=== PATIENT | female | born 1940 | race Caucasian/White ===

== ENCOUNTER → 2016-05-28 | Outpatient (CLI) | payer OTHER ==
[~2016-05-28] MED LIST: AMLO-114 PO; EPLE50TA3 PO; HYG/25 PO; LABE100T23 PO; LEVO150T PO; ROSU5TAB PO
[2016-05-28 18:04] LABS: BLOOD UREA NITROGEN 19 mg/dl (7-18); BUN/CREATININE RATIO 20.3 (10-20); CALCIUM 9.2 mg/dl (8.5-10.1); CARBON DIOXIDE 30 mmol/L (21-32); CHLORIDE 101 mmol/L (98-107); CREATININE 0.92 mg/dl (0.60-1.20); GLUCOSE 153 mg/dl (70-99); POTASSIUM 3.4 mmol/L (3.5-5.1); SODIUM 140 mmol/L (136-145); URIC ACID 5.7 mg/dl (2.6-7.2)
[2016-05-28 18:07] LABS: CHOLESTEROL 173 mg/dl (0-200); CHOLESTEROL/HDL RATIO 3.8; HDL CHOLESTEROL 46 mg/dl; LDL CHOLESTEROL CALCULATED 95 mg/dl; TRIGLYCERIDES 159 mg/dl (0-150); VERY LOW DENSITY LIPOPROT CALC 32 mg/dl
[2016-05-29 06:39] LABS: ESTIMATED AVERAGE GLUCOSE 143 mg/dl; HA1C FLAG Normal (Normal)
== END | disposition home or self-care (01) ==
LOC: C.LABPVFM 14:06
PROVIDERS: ATTEND Family Medicine
DX: R73.09 Other abnormal glucose (principal); E78.5 Hyperlipidemia, unspecified; I10 Essential (primary) hypertension; M25.569 Pain in unspecified knee

== ENCOUNTER → 2016-08-08 | Outpatient (CLI) | payer OTHER ==
[2016-08-08 12:42] LABS: BLOOD UREA NITROGEN 16 mg/dl (7-18); BUN/CREATININE RATIO 18.2 (10-20); CARBON DIOXIDE 32 mmol/L (21-32); CHLORIDE 105 mmol/L (98-107); CREATININE 0.89 mg/dl (0.60-1.20); GLUCOSE 165 mg/dl (70-99); POTASSIUM 3.5 mmol/L (3.5-5.1); SODIUM 142 mmol/L (136-145)
[2016-08-08 12:59] LABS: ESTIMATED AVERAGE GLUCOSE 157 mg/dl; HA1C FLAG Normal (Normal)
== END | disposition home or self-care (01) ==
LOC: C.LABPVFM 09:39
PROVIDERS: ATTEND Family Medicine
DX: I10 Essential (primary) hypertension (principal); R73.09 Other abnormal glucose

== ENCOUNTER → 2016-11-07 | Outpatient (CLI) | payer OTHER ==
[2016-11-08 06:32] LABS: ESTIMATED AVERAGE GLUCOSE 143 mg/dl; HA1C FLAG Normal (Normal)
--- NOTE | 2016-11-13 10:26 | CODING QUERY MEDICAL NECESSITY ---
CQSUPPORTING DIAGNOSIS NEEDED A supporting diagnosis is required for the test/procedure performed on this patient in order for us to be reimbursed by the patient's insurance. Please provide a supporting diagnosis for the following test/procedure listed below next to the test name along with your signature. *If there is no additional diagnosis for this patient that would support the following test/procedure please document that below next to the test/procedure. Test(s)/Procedure(s) that require a supporting diagnosis: KIANNA 11/07/16 VITAMIN D TEST Provider Signature: Date: Thank you Shira Rey Health Information Management Once completed, please kindly fax back to [phone] For questions please call [phone]
== END | disposition home or self-care (01) ==
LOC: C.LABBFT 11:48
PROVIDERS: ATTEND Nurse Practitioner Adult Health
DX: E03.9 Hypothyroidism, unspecified (principal); Z85.828 Personal history of other malignant neoplasm of skin; E11.9 Type 2 diabetes mellitus without complications; E55.9 Vitamin D deficiency, unspecified

== ENCOUNTER → 2017-01-03 | Outpatient (CLI) | payer OTHER ==
--- NOTE | 2017-01-08 12:38 | MAMMOGRAPHY REPORT ---
BILATERAL DIGITAL SCREENING MAMMOGRAM TOMOSYNTHESIS WITH CAD: 01/03/2017 CLINICAL HISTORY: Asymptomatic. Personal history of breast cancer. TECHNIQUE: Breast tomosynthesis in addition to standard 2D mammography was performed. Current study was also evaluated with a Computer Aided Detection (CAD) system. COMPARISON: Comparison is made to exams dated: 01/03/2016 mammogram, 11/04/2014 mammogram, 11/02/2013 ma mmogram, 10/31/2012 mammogram, 04/22/2012 mammogram, and 11/05/2011 mammogram - [facility] nter. BREAST COMPOSITION: There are scattered areas of fibroglandular density in both breasts. FINDINGS: No suspicious masses, calcifications, or areas of architectural distortion are noted in ei ther breast. There has been no significant interval change compared to prior exams. There are stable postsurgical changes in the right upper outer quadrant and left subareolar breast. Bilateral asymme tries and benign-appearing calcifications are not significantly changed. IMPRESSION: ACR BI-RADS CATEGORY 2: BENIGN There is no mammographic evidence of malignancy. A 1 year screening mammogram is recommended. The pa tient will receive written notification of the results. Approximately 10% of breast cancers are not detected with mammography. A negative mammographic report should not delay biopsy if a clinically suggestive mass is present. Racheal Graham M.D. ah/:01/04/2017 16:30:56 Printing Worker Supervisor: Lizette CANCINO)(Michelle), [facility] letter sent: Normal 1/2 BI-RADS Code: ACR BI-RADS Category 2: Benign
== END | disposition home or self-care (01) ==
LOC: C.MAMM 09:05
PROVIDERS: ATTEND Family Medicine
DX: Z12.31 Encounter for screening mammogram for malignant neoplasm of breast (principal)

== ENCOUNTER → 2017-01-08 | Outpatient (CLI) | payer OTHER ==
[2017-01-08 18:23] LABS: BLOOD UREA NITROGEN 14 mg/dl (7-18); BUN/CREATININE RATIO 17.6 (10-20); CALCIUM 9.2 mg/dl (8.5-10.1); CARBON DIOXIDE 29 mmol/L (21-32); CHLORIDE 104 mmol/L (98-107); CREATININE 0.79 mg/dl (0.60-1.20); GLUCOSE 104 mg/dl (70-99); POTASSIUM 3.7 mmol/L (3.5-5.1); SODIUM 140 mmol/L (136-145)
== END | disposition home or self-care (01) ==
LOC: C.LABPVFM 11:26
PROVIDERS: ATTEND Family Medicine
DX: I10 Essential (primary) hypertension (principal)

== ENCOUNTER → 2017-07-11 | Outpatient (CLI) | payer OTHER ==
[2017-07-11 13:55] LABS: HEMOGLOBIN A1C 5.9 % (4.5-5.6)
[2017-07-11 14:13] LABS: ALBUMIN 3.6 gm/dl (3.4-5.0); ALT/SGPT 21 U/L (12-78); BLOOD UREA NITROGEN 16 mg/dl (7-18); CALCIUM 8.7 mg/dl (8.5-10.1); CARBON DIOXIDE 29 mmol/L (21-32); CHOLESTEROL 153 mg/dl (0-200); GLUCOSE 91 mg/dl (70-99); POTASSIUM 3.5 mmol/L (3.5-5.1); SODIUM 140 mmol/L (136-145)
[2017-07-11 14:24] LABS: ALKALINE PHOSPHATASE 66 U/L (45-117); AST/SGOT 16 U/L (15-37); LDL CHOLESTEROL CALCULATED 81 mg/dl; TOTAL PROTEIN 7.2 gm/dl (6.4-8.2)
== END | disposition home or self-care (01) ==
LOC: C.LABBFT 07:39
PROVIDERS: ATTEND Nurse Practitioner Adult Health
DX: E03.9 Hypothyroidism, unspecified (principal); E11.9 Type 2 diabetes mellitus without complications; E55.9 Vitamin D deficiency, unspecified; E78.5 Hyperlipidemia, unspecified; I10 Essential (primary) hypertension

== ENCOUNTER 2019-02-14 13:29 | Inpatient (IN) ==
--- NOTE | 2019-02-14 14:12 | Emergency Department Note ---
Entered by Emili Abbott acting as a scribe for Leonardo Morrison MD History of Present Illness General Chief complaint: Syncope Stated complaint: PASSED OUT - WAS UNRESPONSIVE Time Seen by Provider: 02/14/19 13:42 Source: patient Limitations: no limitations History of Present Illness Onset (ago): hour(s) 3 Location: head Severity: similar to prior episodes Pain Consistency: + other (episode) Current Pain Intensity: 0 Quality: + other (syncope) Associated symptoms: + denies other symptoms (The patient denies any pain, SOB, dizziness, CP, chest palpitations, lightheadedness, and weakness.) The patient is a 78 year old female who presents to the Emergency Room with complaints of a 1-minute syncopal episode that occurred at 10:30 this morning, about 3 hours ago. Her family member, at bedside, notes that she's had 2 similar episodes in the past year. The patient's family member notes that the episode o ccurred while she was sitting at the table. He states that they were talking at the table during breakfast, and she rubbed the sides of her head, became unresponsive, and was "just staring out the window." The patient's family member notes that she started "slumping over," and he caught her before she fell onto the floor. He states that she yawned after the episode, but he denies any shaking during the episode. The family member reports that she woke immediately after the episode with no postictal confusion. The patient denies any pain, SOB, dizziness, CP, diaphoresis, chest palpitations, lightheadedness, and weakness. She denies any memory of the syncopal episode. The patient reports that she felt normal before the episode and she feels normal now. Home Medications Home Medications Medication Instructions Recorded Confirmed Type aspirin [Aspirin Low Dose] 81 mg PO QAM 02/25/18 02/14/19 History levothyroxine 150 mcg tablet 150 mcg PO QAM #90 tab 11/14/18 02/14/19 Rx eplerenone 25 mg tablet 25 mg PO QAM #90 tab 12/11/18 02/14/19 Rx labetalol 100 mg tablet 200 mg PO BID #360 tab 12/29/18 02/14/19 Rx ascorbic acid (vitamin C) 1,000 mg 1 g PO DAILY@1200 tab 01/19/19 02/14/19 History tablet blood sugar diagnostic strips #10 ea 01/19/19 02/14/19 History cholecalciferol (vitamin D3) 2,000 2,000 units PO DAILY@1200 cap 01/19/19 02/14/19 History unit capsule lancets 33 gauge #100 ea 01/19/19 02/14/19 History amlodipine 10 mg PO QAM 02/14/19 02/14/19 History atorvastatin 20 mg PO QAM 02/14/19 02/14/19 History ibuprofen 200 mg PO Q6H PRN 02/14/19 02/14/19 History lisinopril-hydrochlorothiazide 1 tab PO QAM 02/14/19 02/14/19 History metformin 500 mg PO BIDM 02/14/19 02/14/19 History Allergies Allergy/AdvReac Type Severity Reaction Status Date / Time No Known Allergies Allergy Unknown NONE Verified 02/14/19 14:47 Past Med/Surg History Medical History Anemia (Chronic) Breast cancer (Resolved) s/p right lumpectomy and XRT for DCIS in 1996, s/p left lumpectomy for invasive carcinoma 2006, s/p right mastectomy for invasive carcinoma 2018 Lyme disease (Resolved) Type 2 diabetes mellitus (Chronic) Hypertension (Chronic) Hx of skin cancer, basal cell (Resolved) NOSE Hypothyroidism (Chronic) Actinic keratosis (Chronic) Colon polyps (Resolved) Hyperlipidemia (Chronic) Malignant melanoma of skin (Resolved) Vitamin D deficiency (Chronic) Surgical History H/O partial thyroidectomy for goiter H/O total mastectomy of right breast History of cataract surgery WITH LENS IMPLANTS History of colonoscopy Hx of lumpectomy right and left Family History Mother Myocardial infarction Social History Preferred Language: American Communication Ability: Effective Visual Impairment: No Limitations Beliefs That Will Affect Care: None Current Living Situation: Spouse Feels Safe at Home: Yes Smoking Status: Never smoker Hx Alcohol Use: No Hx Substance Use: No Review of Systems See HPI for pertinent positives & negatives. and A total of 10 systems reviewed and were otherwise negative Physical Exam Vital Signs Vital Signs - 24 hr 02/14/19 13:37 02/14/19 14:19 02/14/19 15:10 Temperature 36.5 C Temperature Source Oral Sepsis Recent Fever Within 48 Hours No Sepsis New/Unexplained Change in Mental Status No Sepsis Action Taken by Nursing No Action Required Pulse Rate 66 Pulse Rate [Apical] 67 Pulse Rhythm Regular Pulse Rhythm [Apical] Regular Pulse Strength Normal Pulse Strength [Apical] Normal Respiratory Rate 20 20 Respiratory Effort / Characteristics Non-Labored Spontaneous Non-Labored Spontaneous Respiratory Depth Normal Normal Respiratory Pattern Regular Regular Blood Pressure 200/65 H Blood Pressure [Left Arm] 173/58 H 164/69 H Blood Pressure Mean 110 Blood Pressure Mean [Left Arm] 96 100 Blood Pressure Position Sitting Blood Pressure Position [Left Arm] Sitting Pulse Oximetry 97 97 Oxygen Delivery Method Room Air Room Air 02/14/19 16:13 Temperature Temperature Source Sepsis Recent Fever Within 48 Hours Sepsis New/Unexplained Change in Mental Status Sepsis Action Taken by Nursing Pulse Rate Pulse Rate [Apical] 78 Pulse Rhythm Pulse Rhythm [Apical] Regular Pulse Strength Pulse Strength [Apical] Normal Respiratory Rate 20 Respiratory Effort / Characteristics Non-Labored Spontaneous Respiratory Depth Normal Respiratory Pattern Regular Blood Pressure Blood Pressure [Left Arm] 173/74 H Blood Pressure Mean Blood Pressure Mean [Left Arm] 107 Blood Pressure Position Blood Pressure Position [Left Arm] Sitting Pulse Oximetry 97 Oxygen Delivery Method Room Air GENERAL: Patient is in no acute distress. HEENT: No acute trauma, normocephalic atraumatic, mucous membranes moist, no nasal congestion, no scleral icterus. NECK: No stridor, no adenopathy, no meningismus, trachea is midline. LUNGS: Clear to auscultation bilaterally, no wheeze, no rhonchi, breath sounds equal. HEART: 2/6 systolic murmur at the left sternal boarder. The rhythm is somewhat irregular with a normal rate. ABDOMEN: Soft, nontender, bowel sounds positive, no hernias, no peritonitis. EXTREMITIES: No cyanosis or edema, full range of motion of all the joints without pain or difficulty, no signs for acute trauma. NEUROLOGIC: Oriented x 3, no acute motor or sensory deficits, no focal weakness. SKIN: No rash, no jaundice, no diaphoresis. Course 1343: The patient was evaluated in room C04. A complete history and physical exam was performed. 1516: I reevaluated and updated the patient. 1526: I spoke with Dr. Barakat, [facility], about the patients case. He wants the patient admitted. 1546: I updated the patient, and she is willing to be evaluated by the hospitalist. 1608: I spoke with Dr. Duke, [facility] hospitalist, about the patients case. She will further evaluate the patient. Consultations Consultation #1: I spoke with [facility], about the patients case. He wants the patient admitted. Time: 15:26 Consultation #2: I spoke with Dr. Duke, [facility] hospitalist, about the patients case. She will further evaluate the patient. Time: 16:08 Medical Decision Making Differential Diagnosis The differential diagnosis includes: dysrhythmia, A-fib or A-flutter, sick sinus syndrome, TN, orthostasis, hypotension, anemia. Medical Records Attestation: I reviewed the patient's medical records. Home Medications Current Medication List: was personally reviewed by me Laboratory Data Attestation: I reviewed the patient's lab results. Result diagrams: 02/14/19 13:56 02/14/19 13:56 Lab Results 02/14/19 02/14/19 02/14/19 Range/Units 13:56 13:56 14:15 WBC 7.95 (4.8-10.8) K/uL RBC 4.82 (4.2-5.4) M/uL Hgb 12.0 (12.0-16.0) g/dL Hct 38.3 (37-47) % MCV 79.5 L (80-100) fL MCH 24.9 L (25-34) pg MCHC 31.3 L (32-36) g/dL RDW Std Deviation 45.6 (36.4-46.3) fL RDW Coeff of Angelica 15.6 H (11.5-14.5) % Plt Count 238 (130-400) K/uL MPV 10.5 H (7.4-10.4) fL Immature Gran % (Auto) 0.3 % Neut % (Auto) 77.0 % Lymph % (Auto) 15.1 % [place] % (Auto) 6.7 % Eos % (Auto) 0.6 % Baso % (Auto) 0.3 % Immature Gran # (Auto) 0.02 (0.00-0.02) K/uL Neut # (Auto) 6.13 (1.4-6.5) K/uL Lymph # (Auto) 1.20 (1.2-3.4) K/uL Thurston # (Auto) 0.53 (0.11-0.59) K/uL Eos # (Auto) 0.05 (0-0.5) K/uL Baso # (Auto) 0.02 (0-0.2) K/uL Sodium 140 (136-145) mmol/L Potassium 4.1 (3.5-5.1) mmol/L Chloride 109 H (98-107) mmol/L Carbon Dioxide 24 (21-32) mmol/L Anion Gap 7.0 (3-11) BUN 13 (7-18) mg/dl Creatinine 0.84 (0.6-1.2) mg/dl Est Cr Clr Drug Dosing 65.8 ml/min Est GFR ( Amer) 78.2 Est GFR (Non-Af Amer) 67.5 BUN/Creatinine Ratio 15.8 (10-20) Glucose 108 H (70-99) mg/dl Calcium 8.7 (8.5-10.1) mg/dl Magnesium 2.0 (1.8-2.4) mg/dl Total Bilirubin 0.5 (0.2-1) mg/dl AST 13 L (15-37) U/L ALT 20 (12-78) U/L Alkaline Phosphatase 84 (45-117) U/L Troponin I < 0.015 (0-0.045) ng/ml Total Protein 7.5 (6.4-8.2) gm/dl Albumin 3.7 (3.4-5.0) gm/dl Globulin 3.8 (2.5-4.0) gm/dl Albumin/Globulin Ratio 1.0 (0.9-2) TSH 4.150 (0.300-4.500) uIu/ml Urine Color Yellow Urine Appearance Clear (Clear) Urine pH 7.0 (4.5-7.5) Ur Specific [place] 1.015 (1.000-1.030) Urine Protein Negative (Negative) Urine Glucose (UA) Negative (Negative) Urine Ketones Negative (Negative) Urine Blood Negative (Negative) Urine Nitrite Negative (Negative) Urine Bilirubin Negative (Negative) Urine Urobilinogen Negative (Negative) Ur Leukocyte Esterase Negative (Negative) Imaging Data Radiologist's Impression: Radiology results as stated below per my review and the radiologist's interpretation: XR chest 1V portable HISTORY: 78 years-old Female weakness acute weakness with syncope COMPARISON: PET CT 04/07/2018, chest radiograph 02/26/2018 TECHNIQUE: Portable AP view of the chest FINDINGS: Cardiac silhouette is enlarged, unchanged. Calcified plaque of the thoracic aortic arch. Moderate sized hiatal hernia. No pneumothorax, pleural effusion, focal airspace consolidation or overt pulmonary edema. Calcified plaque of the thoracic aortic arch. Degenerative changes of the shoulders and spine. IMPRESSION: 1. Cardiomegaly without acute process. 2. Moderate hiatal hernia. The above report was generated using voice recognition software. It may contain grammatical, syntax or spelling errors. Electronically signed by: William Mojica M.D. 02/14/2019 2:09 PM ECG Data Attestation: I personally reviewed and interpreted this ECG as follows: Indication: syncope Rate (beats per minute): 61 Rhythm: normal sinus Findings: + other (QTC is 426); no ST elevation and no ectopy Comparison ECG Date: from (02/26/18) Change: no significant change Blood Pressure Blood Pressure Findings: Elevated blood pressure Blood Pressure Disposition: further management by hospitalist MDM Narrative There is no leukocytosis or concerning anemia. No significant electrolyte abnormality or kidney failure. No liver enzyme elevation. The patient appeared to be in a euthyroid state. EKG showed a sinus rhythm, no acute ischemia. Cardiac enzyme testing x1 is not consistent with acute cardiac injury. Chest film does not show pneumonia or CHF. Urinalysis does not show infection. The patient presents with a syncopal spell. There was no warning that she was going to pass out. This has happened 3 times in the last year. I discussed the patient's case with cardiology. A hospital stay was felt warranted. I did speak with the patient and case management. The on-call hospitalist was consulted. At this point, the cause for the syncope is unclear however, a cardiogenic cause is certainly a concern. Impression & Plan Syncope Discharge Plan Visit Data *Final* Discharge Date/Time: 02/14/19 18:30 Chief Complaint: Syncope Stated Complaint: PASSED OUT - WAS UNRESPONSIVE ED Provider: Leonardo Morrison Discharge Problem: Syncope Patient Disposition: Admitted As Inpatient Discharge Instructions Interventions: ED Discharge Assessment Last Done: 02/14/19 18:30 Discharge Problem: Syncope Qualifiers: Syncope type: unspecified Qualified Code(s): R55 - Syncope and collapse The scribe's documentation has been prepared under my direction and personally reviewed by me in its entirety. I confirm that the note above accurately reflects all work, treatment, procedures, and medical decision making performed by me.
[2019-02-14 14:33] LABS: Basophils # (auto) 0.02 K/uL (0-0.2); Basophils % (auto) 0.3 %; Eosinophils # (auto) 0.05 K/uL (0-0.5); Eosinophils % (auto) 0.6 %; Hematocrit (blood only) 38.3 % (37-47); Immature Granulocytes # (auto) 0.02 K/uL (0.00-0.02); Immature Granulocytes % (auto) 0.3 %; Lymphocytes % (auto) 15.1 %; Mean Corpuscular Hemoglobin 24.9 pg (25-34); Mean Corpuscular Hgb Conc 31.3 g/dL (32-36); Mean Corpuscular Volume 79.5 fL (80-100); Mean Platelet Volume 10.5 fL (7.4-10.4); Monocytes # (auto) 0.53 K/uL (0.11-0.59); Monocytes % (auto) 6.7 %; Neutrophils # (auto) 6.13 K/uL (1.4-6.5); Platelet Count 238 K/uL (130-400); RDW Coefficient of Variation 15.6 % (11.5-14.5); RDW Standard Deviation 45.6 fL (36.4-46.3); Red Blood Count 4.82 M/uL (4.2-5.4); White Blood Count 7.95 K/uL (4.8-10.8)
[2019-02-14 14:36] LABS: Appearance Urine Clear (Clear); Bilirubin Urine Negative (Negative); Blood Urine Negative (Negative); Color Urine Yellow; Glucose Urine UA Negative (Negative); Ketones Urine Negative (Negative); Leukocyte Esterase Urine Negative (Negative); Nitrite Urine Negative (Negative); Protein Urine Negative (Negative); Specific Gravity Urine 1.015 (1.000-1.030); Urobilinogen Urine Negative (Negative)
[2019-02-14 14:43] LABS: Alanine Aminotransferase 20 U/L (12-78); Albumin Level 3.7 gm/dl (3.4-5.0); Aspartate Aminotransferase 13 U/L (15-37); BUN Creatinine Ratio 15.8 (10-20); Blood Urea Nitrogen 13 mg/dl (7-18); Calcium 8.7 mg/dl (8.5-10.1); Carbon Dioxide 24 mmol/L (21-32); Chloride 109 mmol/L (98-107); Creatinine Clr Calc Pharmacy 65.8 ml/min; Est GFR (African American) 78.2; Est GFR (Non-African American) 67.5; Glucose 108 mg/dl (70-99); Potassium 4.1 mmol/L (3.5-5.1); Sodium 140 mmol/L (136-145)
[2019-02-14 14:53] LABS: Alkaline Phosphatase 84 U/L (45-117); Bilirubin,Total 0.5 mg/dl (0.2-1); Globulin 3.8 gm/dl (2.5-4.0); Total Protein 7.5 gm/dl (6.4-8.2); Troponin I < 0.015 ng/ml (0-0.045)
--- NOTE | 2019-02-14 17:31 | History & Physical Report ---
Date of Service February 14, 2019 Assessment & Plan (1) Syncope: Uncertain etiology Possible arrhythmia, tele monitor ECHO pending Trop neg x1, serials pending Some features of episode c/w absence seizure although no post ictal state described Will obtain EEG Recent Lyme disease with at least one course of tx, but felt incomplete tx per derm--it is unclear if pt completed a second course of tx and all notes are not in system Lyme testing pending UA, CXR neg for infection CBC, PRP WNL TSH WNL If all testing WNL, t/c event monitor (2) Anemia: Hx of recent iron transfusion Iron panel pending Hb stable with low MCV Seems less likely the reason for syncope (3) Breast cancer: s/p mastectomy 03/2018 Did not complete course of PO chemo due to side effects and has not f/u since that time Agreeable to mammogram next month Did advise that pt be seen by new oncology given risk for recurrence She and family agree to do so (4) Lyme disease: As noted above Lyme pending WCC for rash/ulceration management (5) Type 2 diabetes mellitus: Metformin only Monitor BS WNL in ED (6) Hypertension: continue home meds (7) Hx of skin cancer, basal cell: Follows with derm (8) Hypothyroidism: continue home meds (9) Hyperlipidemia: continue home meds (10) HTN (hypertension): continue home meds (11) DVT prophylaxis: SCDs, aspirin given likely short duration of admission History of Present Illness Primary Care Provider: Jami Doan MD 78 y/o F c/o syncopal episode. Pt does not remember this at all. She states she felt fine today and yesterday. She had a normal day yesterday and was able to do all of the things she usually does without issue. She was sitting at the table with her and reading the paper. He states he was talking to her and she slowly put down the paper and was just staring ahead. He continued to try to call her name and talk with her but he states "it was like she couldn't hear me". She gradually started to slump forward and he got up to help her so she did not hit her head. She was unconscious for about 1 minute. When she woke up, he states pt was back to her prior self. No issues talking or interacting, but she had no memory of this event. states this is the third time this has happened in the last several months. Pt denies fever, SOB, chest pain, abd pain, n/v/c/d, LE pain or swelling. Pt states she feels fine at present. Pt has been following with derm for a rash on her abd for several months. 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 Per [employer], pt was initially seen for this on 09/25 and given doxy x30 days. She does think that she finished this course and states that her rash is much improved. She was seen again on 01/27 and it references a visit from 12/08, however this note is not in either system. It does suggest that she was put on doxy x2 months on 12/08, but pt states no further doxy use. She does think she was given another abx, but she does not remember the name. She thinks she took it for about 10 days. No further abx started on 01/27 per pt. Pt has hx of R sided breast cancer s/p mastectomy on 03/12/18. Pt tells me she is not on any tx for this. While looking for derm notes, I found another note from PCP stating that [facility] and was being tx with PO medications. She had intense joint pain with this and stopped this medication without f/u. I did return to pt room to discuss and they tell me that this did happen. She ended up with Qweekly iron transfusions while on this medication and with joint pain, so she wanted to stop it. Dr. Burns recommended against this, so she decided to just stop this medication and not return for further care. It appears that this was discussed at recent PCP visit last month with pt given referral to [facility] oncology, however she told PCP she did not want to f/u at this time with oncology, but that she would have a mammogram in February as scheduled. Pt does confirm that she has not scheduled a new pt visit with oncology but that she is planning her mammogram. Allergies Allergy/AdvReac Type Severity Reaction Status Date / Time No Known Allergies Allergy Unknown NONE Verified 02/14/19 14:47 Home Medications Home Medications Medication Instructions Recorded Confirmed Type aspirin [Aspirin Low Dose] 81 mg PO QAM 02/25/18 02/14/19 History levothyroxine 150 mcg tablet 150 mcg PO QAM #90 tab 11/14/18 02/14/19 Rx eplerenone 25 mg tablet 25 mg PO QAM #90 tab 12/11/18 02/14/19 Rx labetalol 100 mg tablet 200 mg PO BID #360 tab 12/29/18 02/14/19 Rx ascorbic acid (vitamin C) 1,000 mg 1 g PO DAILY@1200 tab 01/19/19 02/14/19 History tablet blood sugar diagnostic strips #10 ea 01/19/19 02/14/19 History cholecalciferol (vitamin D3) 2,000 2,000 units PO DAILY@1200 cap 01/19/19 02/14/19 History unit capsule lancets 33 gauge #100 ea 01/19/19 02/14/19 History amlodipine 10 mg PO QAM 02/14/19 02/14/19 History atorvastatin 20 mg PO QAM 02/14/19 02/14/19 History ibuprofen 200 mg PO Q6H PRN 02/14/19 02/14/19 History lisinopril-hydrochlorothiazide 1 tab PO QAM 02/14/19 02/14/19 History metformin 500 mg PO BIDM 02/14/19 02/14/19 History Past Med/Surg History Medical History Anemia (Chronic) Breast cancer (Resolved) s/p right lumpectomy and XRT for DCIS in 1996, s/p left lumpectomy for invasive carcinoma 2006, s/p right mastectomy for invasive carcinoma 2018 Lyme disease (Resolved) Type 2 diabetes mellitus (Chronic) Hypertension (Chronic) Hx of skin cancer, basal cell (Resolved) NOSE Hypothyroidism (Chronic) Actinic keratosis (Chronic) Colon polyps (Resolved) Hyperlipidemia (Chronic) Malignant melanoma of skin (Resolved) Vitamin D deficiency (Chronic) Surgical History H/O partial thyroidectomy for goiter H/O total mastectomy of right breast History of cataract surgery WITH LENS IMPLANTS History of colonoscopy Hx of lumpectomy right and left Family History Mother Myocardial infarction Social History Preferred Language: Persian Communication Ability: Effective Visual Impairment: No Limitations Beliefs That Will Affect Care: None Current Living Situation: Spouse Feels Safe at Home: Yes Smoking Status: Never smoker Hx Alcohol Use: No Hx Substance Use: No Review of Systems Review of Systems: Pertinent positives and negatives reviewed in HPI--all o thers negative Physical Exam Constitutional: WD/WN, vitals as above Eyes: normal visual ng by confrontation and + anicteric sclerae Neck: normal visual inspection and trachea midline Respiratory: normal respiratory effort, lungs clear to auscultation Cardiovascular: Rate/Rhythm: regular rate and regular rhythm Gastrointestinal (Abdomen): Inspection/Auscultation: abdomen not distended Percussion/Palpation: abdomen soft; abdomen nontender Musculoskeletal: Head/Neck/Chest: normocephalic and head atraumatic negative for edema, peripheral pulses intact Skin: warm and dry Abd with redness and scaling along b/l lateral larose that appears to be healing with bandages in place that are clean Several areas in the suprapubic region with chronic skin changes Neurologic: awake; not confused Speech / Cognition: normal speech Psychiatric: A+Ox3, euthymic affect Results & Data Vital Signs (Past 12 Hours) Vital Signs Temp Pulse Pulse Resp BP BP Pulse Ox 02/14/19 16:13 78 20 173/74 H 97 02/14/19 15:10 67 20 164/69 H 97 02/14/19 14:19 173/58 H 02/14/19 13:37 36.5 C 66 20 200/65 H 97 Diagnostic Findings CXR: mild hiatal hernia ECG Rhythm: normal sinus Code Status & VTE Plan Code Status Full cardiac code, DNI. Family is present and agrees with her wishes She does reinforce that she would like to be an organ donor VTE Prophylaxis Plan VTE Prophylaxis will be ordered: Yes PG Care Time/CCT Total # of Minutes Spent Total Time Spent with Patient: Total time spent is greater than 50% in coordination of care (as documented) at patient's floor/unit and/or counseling patient: (1) Syncope Syncope type: unspecified Qualified Code(s): R55 - Syncope and collapse
[2019-02-14] MEDS ORDERED: ONDANSETRON INJ 2 MG/ML 2 ML VIAL IV PRN (18:47)
[2019-02-14] MEDS ORDERED: MAGNESIUM HYDROXIDE SUSP 30 ML UDC PO PRN (18:47)
[2019-02-14] MEDS ORDERED: ACETAMINOPHEN 325 MG TAB PO PRN (18:47)
[2019-02-14] MEDS ORDERED: IBUPROFEN 200 MG TAB PO PRN (18:47)
[2019-02-14 20:59] LABS: Lyme Ab IgG w/WB Rflx Positive (Negative); Lyme Ab IgM w/WB Rflx Equivocal (Negative)
[2019-02-14] MEDS: LABETALOL HCL 200 MG TAB PO SCH (21:14)
[2019-02-14] MEDS: EPLERENONE: ORDER AWAITING ACTION SCH (23:36)
[2019-02-15] MEDS ORDERED: INFLUENZA ADMINISTRATION CHARGE ONE (00:15)
[2019-02-15] MEDS ORDERED: INFLUENZA VACCINE HIGH DOSE 65+ 0.5 ML SYR IM ONE (00:15)
[2019-02-15] MEDS: LEVOTHYROXINE SODIUM 150 MCG TABLET PO SCH (05:42)
[2019-02-15 06:48] LABS: Ferritin 5.8 ng/ml (8-388)
[2019-02-15] MEDS: LABETALOL HCL 200 MG TAB PO SCH ×2 (08:30→20:56)
[2019-02-15] MEDS: AMLODIPINE BESYLATE 5 MG TAB PO SCH (08:30)
[2019-02-15] MEDS: ASPIRIN 81 MG ECTAB PO SCH (08:30)
[2019-02-15] MEDS: LISINOPRIL/HCTZ 10/12.5MG TAB PO SCH (08:30)
[2019-02-15] MEDS: ATORVASTATIN 20 MG TAB PO SCH (08:30)
[2019-02-15] MEDS: METFORMIN HCL 500 MG TAB PO SCH ×2 (08:31→20:19)
[2019-02-15] MEDS: EPLERENONE: ORDER AWAITING ACTION SCH ×2 (08:31→17:21)
[2019-02-15] MEDS: ASCORBIC ACID 500 MG TAB PO SCH (12:37)
[2019-02-15] MEDS: CHOLECALCIFEROL 1,000 UNITS TAB PO SCH (12:38)
[2019-02-15] MEDS ORDERED: GADOBUTROL 30ML VIAL IV PRN (14:24)
--- NOTE | 2019-02-15 14:45 | Magnetic Resonance Report ---
MRI OF THE BRAIN WITHOUT AND WITH IV CONTRAST CLINICAL HISTORY: Syncope. Breast carcinoma. Possible stroke. Possible metastatic disease. COMPARISON STUDY: No previous studies for comparison. TECHNIQUE: MRI of the brain was performed from the vertex to the skull base utilizing various T1 and T2 weighted sequences. Following the IV administration of 8 mL of Gadavist contrast, additional enhan hernán images were obtained. FINDINGS: Other than the above-described extra-axial parafalcine enhancing mass, there are no additio nal areas of pathologic enhancement. Sagittal T1, axial diffusion, proton density and T2 weighted axial, coronal FLAIR, and pre and post a xial T1-weighted images were acquired. These were supplemented with post gadolinium coronal T1 weight ed images. There is a 12 x 12 x 6 mm intensely enhancing extra-axial left convexity parafalcine mass, likely rep resenting a meningioma. No additional masses are delineated. Axial diffusion-weighted images reveal no evidence of acute or subacute infarction. There is no evidence of ventricular dilatation. Proton density T2-weighted and FLAIR images reveal multiple foci of increased T2 and FLAIR signal wit hin the white matter, statistically on a small vessel basis. There are no abnormal flow voids. There is no evidence of pathologic enhancement. There are foci of mildly increased T2 signal within the right mastoid likely inflammatory IMPRESSION: 1. No evidence of acute or subacute infarction 2. 12 x 12 x 6 mm enhancing extra-axial left convexity parafalcine mass, likely representing a mening ioma. 3. No evidence of intraparenchymal metastasis 4. Nonspecific foci of increased T2 and FLAIR signal within the white matter, likely on a small vesse l basis. Electronically signed by: Ryan Hazel M.D. 02/15/2019 2:44 PM
--- NOTE | 2019-02-15 14:51 | XRay Report ---
XR abdomen min 2V CLINICAL HISTORY: abdominal distension COMPARISON STUDY: No previous studies for comparison. FINDINGS: No free air is visualized. There is a suspected hiatal hernia. There are pelvic calcificati ons, likely representing calcifications within the uterine fibroid. There is a 1 cm right abdominal c alcification, likely representing a renal or ureteral calculus. There are scattered air-fluid levels. There is moderate left colonic stool. There are distended left-sided small bowel loops measuring up to 5.3 cm. IMPRESSION: 1. Distended small bowel loops measuring up to 5.3 cm 2. Hiatal hernia 3. No free air identified 4. 1 cm right abdominal calcification likely representing a renal or ureteral calculus 5. Paucity of bowel gas within the right abdomen, likely secondary to the patient's known large right renal cyst Electronically signed by: Ryan Hazel M.D. 02/15/2019 2:49 PM
[2019-02-15] MEDS ORDERED: IOVERSOL 100ml IV PRN (19:35)
--- NOTE | 2019-02-15 19:59 | CT Scan Report ---
CT abd pelvis oral and IV con CLINICAL HISTORY: Weight loss, abdominal distention, abnormal a UV. COMPARISON STUDY: KUB dated 02/15/2019, PET CT scan performed April 2018 TECHNIQUE: The patient was scanned following administration of dilute oral contrast, and in a dynamic helical fashion during intravenous administration of 94 cc of Optiray 320. A dose lowering techniqu e was utilized adhering to the principles of ALARA. CT DOSE: 604.83 mGy.cm FINDINGS: Lower chest: There is a large hiatal hernia. There is no pericardial effusion. There is minor basilar atelectasis. Liver: The contrast-enhanced liver is normal in size, contour, and attenuation. There is no intrahepa tic biliary ductal dilatation. The hepatic veins and portal veins are patent. Gallbladder: Unremarkable. Spleen: Normal in size and attenuation. Pancreas: There are multiple pancreatic lesions involving the pancreatic head body and tail. The larg est lesion involves the tail and measures 28 mm. Pancreatic calcifications are also visualized. There is no definite pancreatic ductal dilatation. Adrenal glands: There is a 14 mm left adrenal gland which measures 30 Hounsfield units and is therefo re indeterminate. Kidneys: There is a 16.5 cm right renal cyst. There is a 22 mm left renal cyst. Additional smaller re nal cysts are visualized. No solid renal masses are visualized. There is no hydronephrosis. There is a probable left renal calculus. Bowel: There are no transition zones to indicate bowel obstruction. There is moderate stool throughou t the colon. CT scanning fails to confirm the presence of a dilated small bowel loop. The outlet in q uestion on the prior KUB may represent colon which is displaced due to the large right renal cyst. No acute inflammatory changes are visualized. Peritoneum: There is no intraperitoneal free air or abdominal ascites. Vasculature: The abdominal aorta is normal in course and caliber. Adenopathy: There is a stable prominent right inguinal lymph node measuring 22 mm Pelvic viscera: There are calcified uterine fibroids. The ovaries appear mildly enlarged for age. Skeletal structures: No destructive osseous lesions are seen. IMPRESSION: 1. Stable 16.5 cm right renal cyst which displaces the bowel to the left of midline 2. No evidence of bowel obstruction. No evidence of free air. No acute inflammatory changes 3. Stable 14 mm left adrenal nodule. This was not FDG avid on the preceding study 4. Stable enlarged 22 mm right inguinal lymph node 5. Multiple enlarging cystic pancreatic lesions. GI consultation for consideration of endoscopic ultr asound is recommended in follow-up. 6. Large duodenal diverticulum 7. Large hiatal hernia 8. Suspected left-sided nephrolithiasis 9. Mild ovarian enlargement for age. The ovaries were not FDG avid on the prior PET CT scan 10. Calcified uterine fibroids Electronically signed by: Ryan Hazel M.D. 02/15/2019 7:57 PM
--- NOTE | 2019-02-15 20:46 | Hospitalist Progress Note ---
Date of Service February 15, 2019 Assessment & Plan (1) Syncope: Uncertain etiology. Has had 3 episodes including yesterday's over the last few minutes. They are brief - about 1 minute in duration - and she has no obvious post-ictal state. She stares straight ahead then loses consciousness when it happens. Tele thus far w/o sinus pauses, AV block or other arrhythmia. Echo wnl. Troponin negative. MRI brain with small meningioma but no intracranial mets, stroke, etc. Some features of episode could suggest absence seizure or complex partial seizure -- awaiting EEG (to be done Saturday). No evidence of any infectious process. Lyme IgM is equivocal and IgG is positive - even if she indeed has Lyme Disease I doubt it would cause an event like she had yesterday. Cont to monitor. If EEG is negative consider outpatient monitor or EP referral for loop recorder and/or tilt table test. (2) Anemia: severe Fe deficiency as manifested by ferritin <10. has had Fe infusions in past. Hb however is 12. follow. defer additional Fe infusions to outpatient providers. (3) Breast cancer: RIGHT. s/p mastectomy 03/2018 Did not complete course of PO chemo due to side effects and has not f/u since that time MRI brain w/o intracranial mets She did not like [facility] -- IS willing to go to provider at [facility] locally will need this arranged at discharge (4) Abdominal distension: x-rays today with small bowel dilatation etiology ??? in light of progressive symptoms, weight loss, etc will check CT abd/pelvis with IV/PO contrast r/o ascites, mass/tumor, etc she has no symptoms of obstructive process (5) Lyme disease: dx with early stage Lyme's sometime earlier this year. had at least 1, if not 2, courses of oral doxycycline. I am not aware of a chronic rash in the context of disseminated Lyme Disease. I am uncertain by the significance of the +IgG level and equivocal IgM level. Would simply wait for Western Blot testing. Defer on abx for now. (6) Type 2 diabetes mellitus: hold Metformin novolog SSI bsgs ac/hs (7) Hypertension: continue home meds BPs mildly high today if they cont to run high then adjust meds (8) Hx of skin cancer, basal cell: numerous BCCs and some SCCs s/p removal by derm over the years (9) Hypothyroidism: recent TSH wnl continue synthroid as is (10) Hyperlipidemia: continue home meds (11) Lichen sclerosus: biopsy proven abdominal wall, bilateral lower abdominal wall cont local skin care as previously advised by dermatology (12) Weight loss: uncertain etiology in light of breast ca history and abdominal distension obtaining CT abd/pelvis (13) DVT prophylaxis: if patient stays beyond Saturday then start chemical DVT proph change observation to full admission status I certify that the inpatient services were ordered in accordance with Medicare regulations governing the order. This includes certification that hospital inpatient services are reasonable and necessary and in the case of services not specified as inpatient-only under 42 CFR 419.22(n), that they are appropriately provided as inpatient services in accordance to with the 2-midnight benchmark under 43 CFR 412.3(e) family extensively updated at bedside today on 2 occasions Subjective tele stable overnight. during the encounter pt's at bedside. he reports that the syncopal episode his had has happened 3 times in the last few months. she has NO warning or prodromal symptoms. she stares straight ahead before losing consciousness. she has had abdominal swelling/bloating for 1-2 months. she also reports 10+ pounds of weight loss in the last few weeks? has been dealing with the rash on her torso for several months. now seeing Dr Joseph at [facility] for it. a biopsy showed lichen sclerosis. it has improved. Review of Systems Constitutional: + anorexia; no fever, no chills and no fatigue Respiratory: no cough and no dyspnea Cardiovascular: + syncope; no chest pain, no orthopnea, no paroxysmal nocturnal dyspnea, no palpitations and no lightheadedness Gastrointestinal: + bloating; no abdominal pain, no early satiety, no nausea, no vomiting, no constipation and no diarrhea/loose stools Physical Exam Constitutional: no acute distress Eyes: PERRL ENMT: external ear and nose normal, oropharynx normal Neck: trachea midline, no thyromegaly Respiratory: normal respiratory effort, lungs clear to auscultation Cardiovascular: Rate/Rhythm: regular rate and regular rhythm Heart Sounds: normal S1 and normal S2; no murmur Vessels: posterior tibial pulses present and dorsalis pedis pulses present; no JVD Extremities: no edema Gastrointestinal (Abdomen): Inspection/Auscultation: + abdomen distended (severe distension of upper abdomen with ?palpable loops of bowel) and normal bowel sounds Percussion/Palpation: abdomen nontender, no guarding and no hepatosplenomegaly Skin: + rash (lower abdominal wall - 2 large patches of scaly erythema b/l ) Neurologic: deep tendon reflexes 2+ bilaterally and moves all extremities; no focal motor deficits and not confused Psychiatric: A+Ox3, euthymic affect Results & Data Vital Signs (Past 12 Hours) Vital Signs Temp Pulse Pulse Resp BP BP Pulse Ox 02/15/19 19:15 36.7 C 63 18 166/67 H 97 02/15/19 15:43 36.8 C 50 L 18 151/66 H 97 02/15/19 15:07 52 L 02/15/19 11:51 36.6 C 50 L 18 165/61 H 95 02/15/19 10:00 36.9 C 55 L 18 175/88 H 95 Laboratory Results Laboratory Results - last 24 hr 02/14/19 02/14/19 02/15/19 13:56 13:56 00:20 POC Glucose Iron TIBC Transferrin Ferritin Troponin I < 0.015 Lyme Disease IgG Ab Positive A Lyme IgG (Western Blot) Pending Lyme IgG 18 kDa Band Pending Lyme IgG 23 kDa Band Pending Lyme IgG 28 kDa Band Pending Lyme IgG 30 kDa Band Pending Lyme IgG 39 kDa Band Pending Lyme IgG 41 kDa Band Pending Lyme IgG 45 kDa Band Pending Lyme IgG 58 kDa Band Pending Lyme IgG 66 kDa Band Pending Lyme IgG 93 kDa Band Pending Lyme Disease IgM Ab Equivocal A Lyme IgM (Western Blot) Pending Lyme IgM 23 kDa Band Pending Lyme IgM 39 kDa Band Pending Lyme IgM 41 kDa Band Pending 02/15/19 02/15/19 02/15/19 05:30 07:33 11:44 POC Glucose 97 99 Iron 22 L TIBC 390 Transferrin 294 Ferritin 5.8 L Troponin I Lyme Disease IgG Ab Lyme IgG (Western Blot) Lyme IgG 18 kDa Band Lyme IgG 23 kDa Band Lyme IgG 28 kDa Band Lyme IgG 30 kDa Band Lyme IgG 39 kDa Band Lyme IgG 41 kDa Band Lyme IgG 45 kDa Band Lyme IgG 58 kDa Band Lyme IgG 66 kDa Band Lyme IgG 93 kDa Band Lyme Disease IgM Ab Lyme IgM (Western Blot) Lyme IgM 23 kDa Band Lyme IgM 39 kDa Band Lyme IgM 41 kDa Band 02/15/19 02/15/19 16:44 20:20 POC Glucose 103 H 101 H Iron TIBC Transferrin Ferritin Troponin I Lyme Disease IgG Ab Lyme IgG (Western Blot) Lyme IgG 18 kDa Band Lyme IgG 23 kDa Band Lyme IgG 28 kDa Band Lyme IgG 30 kDa Band Lyme IgG 39 kDa Band Lyme IgG 41 kDa Band Lyme IgG 45 kDa Band Lyme IgG 58 kDa Band Lyme IgG 66 kDa Band Lyme IgG 93 kDa Band Lyme Disease IgM Ab Lyme IgM (Western Blot) Lyme IgM 23 kDa Band Lyme IgM 39 kDa Band Lyme IgM 41 kDa Band Diagnostic Findings MRI brain: IMPRESSION: 1. No evidence of acute or subacute infarction 2. 12 x 12 x 6 mm enhancing extra-axial left convexity parafalcine mass, likely representing a meningioma. 3. No evidence of intraparenchymal metastasis 4. Nonspecific foci of increased T2 and FLAIR signal within the white matter, likely on a small vessel basis. echo - preserved EF, normal valvular function PG Care Time/CCT Total # of Minutes Spent Total Time Spent with Patient: Total time spent is greater than 50% in coordination of care (as documented) at patient's floor/unit and/or counseling patient: (1) Syncope Syncope type: unspecified Qualified Code(s): R55 - Syncope and collapse (2) Anemia Anemia type: iron deficiency Iron deficiency anemia type: unspecified iron deficiency Qualified Code(s): D50.9 - Iron deficiency anemia, unspecified (3) Breast cancer Breast location: unspecified site of breast Estrogen receptor status: unspecified Patient sex: female Laterality: right Qualified Code(s): C50.911 - Malignant neoplasm of unspecified site of right female breast (4) Type 2 diabetes mellitus Diabetes mellitus chcf insulin use: without termination clerk use Diabetes mellitus complication status: without complication Qualified Code(s): E11.9 - Type 2 diabetes mellitus without complications (5) Hypertension Hypertension type: essential hypertension Qualified Code(s): I10 - Essential (primary) hypertension (6) Hypothyroidism Hypothyroidism type: acquired Qualified Code(s): E03.9 - Hypothyroidism, unspecified (7) Hyperlipidemia Hyperlipidemia type: mixed hyperlipidemia Qualified Code(s): E78.2 - Mixed hyperlipidemia
[2019-02-15] MEDS: INSULIN ASPART 100 UNITS/ML VIAL SC SCH (21:36)
[2019-02-16] MEDS: EPLERENONE: ORDER AWAITING ACTION SCH ×3 (00:12→14:05)
[2019-02-16] MEDS: LEVOTHYROXINE SODIUM 150 MCG TABLET PO SCH (05:32)
[2019-02-16 06:06] LABS: Hematocrit (blood only) 35.6 % (37-47); Hemoglobin 11.5 g/dL (12.0-16.0); Mean Corpuscular Hemoglobin 25.2 pg (25-34); Mean Corpuscular Hgb Conc 32.3 g/dL (32-36); Mean Corpuscular Volume 78.1 fL (80-100); Mean Platelet Volume 9.8 fL (7.4-10.4); Platelet Count 225 K/uL (130-400); RDW Coefficient of Variation 15.8 % (11.5-14.5); Red Blood Count 4.56 M/uL (4.2-5.4); White Blood Count 6.27 K/uL (4.8-10.8)
[2019-02-16 06:45] LABS: BUN Creatinine Ratio 16.1 (10-20); Calcium 8.6 mg/dl (8.5-10.1); Creatinine Clr Calc Pharmacy 63.5 ml/min; Est GFR (Non-African American) 64.7; Potassium 3.5 mmol/L (3.5-5.1)
[2019-02-16] MEDS: ATORVASTATIN 20 MG TAB PO SCH (09:00)
[2019-02-16] MEDS: ASPIRIN 81 MG ECTAB PO SCH (09:00)
[2019-02-16] MEDS: AMLODIPINE BESYLATE 5 MG TAB PO SCH (09:00)
[2019-02-16] MEDS: LISINOPRIL/HCTZ 10/12.5MG TAB PO SCH (09:00)
[2019-02-16] MEDS: LABETALOL HCL 200 MG TAB PO SCH (09:01)
[2019-02-16] MEDS: INSULIN ASPART 100 UNITS/ML VIAL SC SCH ×2 (10:11→14:06)
--- NOTE | 2019-02-16 12:49 | Electroencephalogram ---
EEG Procedure Note Date of Service February 16, 2019 Start / End Times Start Time: 11:10 End Time: 11:[address] Donal Pereira History A 78 year old woman with recurrent syncope. EEG performed for evaluation of epileptiform activity. Home Medication List Home Medications Medication Instructions Recorded Confirmed Type aspirin [Aspirin Low Dose] 81 mg PO QAM 02/25/18 02/14/19 History levothyroxine 150 mcg tablet 150 mcg PO QAM #90 tab 11/14/18 02/14/19 Rx eplerenone 25 mg tablet 25 mg PO QAM #90 tab 12/11/18 02/14/19 Rx labetalol 100 mg tablet 200 mg PO BID #360 tab 12/29/18 02/14/19 Rx ascorbic acid (vitamin C) 1,000 mg 1 g PO DAILY@1200 tab 01/19/19 02/14/19 History tablet blood sugar diagnostic strips #10 ea 01/19/19 02/14/19 History cholecalciferol (vitamin D3) 2,000 2,000 units PO DAILY@1200 cap 01/19/19 02/14/19 History unit capsule lancets 33 gauge #100 ea 01/19/19 02/14/19 History amlodipine 10 mg PO QAM 02/14/19 02/14/19 History atorvastatin 20 mg PO QAM 02/14/19 02/14/19 History ibuprofen 200 mg PO Q6H PRN 02/14/19 02/14/19 History lisinopril-hydrochlorothiazide 1 tab PO QAM 02/14/19 02/14/19 History metformin 500 mg PO BIDM 02/14/19 02/14/19 History Inpatient Medication List Amlodipine Besylate (Norvasc) 10 mg PO QAM [facility] Stop: 03/17/19 08:59 Last Admin: 02/16/19 09:00 Dose: 10 mg Documented by: [id number] Admin: 02/15/19 08:30 Dose: 10 mg Documented by: [id number] Ascorbic Acid (Vitamin C) 1,000 mg PO DAILY@1200 [facility] Stop: 03/17/19 11:59 Last Admin: 02/15/19 12:37 Dose: 1,000 mg Documented by: [id number] Aspirin (Ecotrin Ectab) 81 mg PO QAM [facility] Stop: 03/17/19 08:59 Last Admin: 02/16/19 09:00 Dose: 81 mg Documented by: [id number] Admin: 02/15/19 08:30 Dose: 81 mg Documented by: [id number] Atorvastatin Calcium (Lipitor) 20 mg PO QAM [facility] Stop: 03/17/19 08:59 Last Admin: 02/16/19 09:00 Dose: 20 mg Documented by: [id number] Admin: 02/15/19 08:30 Dose: 20 mg Documented by: [id number] Gadobutrol (Gadavist 30ml) 8 ml IV ONCE PRN PRN Reason: Interaction Checking Stop: 02/19/19 14:23 Last Admin: 02/15/19 14:25 Dose: 8 ml Documented by: [id number] Lisinopril/HCTZ (Prinzide 10/12.5mg) 1 tab PO [facility] Stop: 03/17/19 08:59 Last Admin: 02/16/19 09:00 Dose: 1 tab Documented by: [id number] Admin: 02/15/19 08:30 Dose: 1 tab Documented by: [id number] Insulin Aspart (Novolog Aspart) 0 units SC [facility] Stop: 02/17/19 16:29 Last Admin: 02/16/19 10:11 Dose: Not Given Documented by: [id number] Cosigned by: [id number] Admin: 02/15/19 21:36 Dose: Not Given Documented by: [id number] Cosigned by: [id number] Ioversol (Optiray 320 100ml) 94 ml IV ONCE PRN PRN Reason: Interaction Checking Stop: 02/19/19 19:34 Last Admin: 02/15/19 19:39 Dose: 94 ml Documented by: [id number] Labetalol HCl (Normodyne) 200 mg PO BID [facility] Stop: 03/16/19 20:59 Last Admin: 02/16/19 09:01 Dose: 200 mg Documented by: [id number] Admin: 02/15/19 20:56 Dose: 200 mg Documented by: [id number] Admin: 02/15/19 08:30 Dose: 200 mg Documented by: [id number] Admin: 02/14/19 21:14 Dose: 200 mg Documented by: [id number] Levothyroxine Sodium (Synthroid) 150 mcg PO DAILYBB [facility] Stop: 03/17/19 06:29 Last Admin: 02/16/19 05:32 Dose: 150 mcg Documented by: [id number] Admin: 02/15/19 05:42 Dose: 150 mcg Documented by: [id number] Metformin HCl (Glucophage) 500 mg PO BIDM [facility] Stop: 03/17/19 07:59 Last Admin: 02/15/19 20:19 Dose: Not Given Documented by: [id number] Admin: 02/15/19 08:31 Dose: 500 mg Documented by: [id number] Miscellaneous (Order Awaiting Action) 1 ea N/A QS [facility] Stop: 03/17/19 00:00 Last Admin: 02/16/19 09:01 Dose: Not Given Documented by: [id number] Admin: 02/16/19 00:12 Dose: Not Given Documented by: [id number] Admin: 02/15/19 17:21 Dose: Not Given Documented by: [id number] Admin: 02/15/19 08:31 Dose: Not Given Documented by: [id number] Admin: 02/14/19 23:36 Dose: Not Given Documented by: [id number] Vitamin D (Vitamin D3) 2,000 units PO DAILY@1200 [facility] Stop: 03/17/19 11:59 Last Admin: 02/15/19 12:38 Dose: 2,000 units Documented by: [id number] Description This is a 21 electrode EEG with a single channel dedicated to limited EKG. The electrodes were placed in accordance with the International 10-20 system. REPORT: At the onset of the EEG, the patient is awake. The background activity consist of 9-10 Hz, persistent, posteriorly dominant, moderate amplitude, symmetric and rhythmic activity that is reactive to eye opening. Anteriorly, it consist of a mixture of low voltage indeterminate activity and 15-25 Hz, persistent, low amplitude, symmetric and rhythmic activity. Stepwise intermittent photic stimulation does not induce any abnormalities. Drowsiness is characterized by low amplitude mixed frequency activity, roving eye movements, and decreased eye blinking and muscle artifact. IMPRESSION: This is a normal awake and drowsy EEG. There is no evidence of epileptiform activity.
[2019-02-16] MEDS: ASCORBIC ACID 500 MG TAB PO SCH (14:04)
[2019-02-16] MEDS: CHOLECALCIFEROL 1,000 UNITS TAB PO SCH (14:05)
--- NOTE | 2019-02-16 16:06 | Discharge Summary ---
Date of Service February 16, 2019 Admission HPI Per Admitting Provider 78 y/o F c/o syncopal episode. Pt does not remember this at all. She states she felt fine today and yesterday. She had a normal day yesterday and was able to do all of the things she usually does without issue. She was sitting at the table with her and reading the paper. He states he was talking to her and she slowly put down the paper and was just staring ahead. He continued to try to call her name and talk with her but he states "it was like she couldn't hear me". She gradually started to slump forward and he got up to help her so she did not hit her head. She was unconscious for about 1 minute. When she woke up, he states pt was back to her prior self. No issues talking or interacting, but she had no memory of this event. states this is the third time this has happened in the last several months. Pt denies fever, SOB, chest pain, abd pain, n/v/c/d, LE pain or swelling. Pt states she feels fine at present. Pt has been following with derm for a rash on her abd for several months. 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 Per [employer], pt was initially seen for this on 09/25 and given doxy x30 days. She does think that she finished this course and states that her rash is much improved. She was seen again on 01/27 and it references a visit from 12/08, however this note is not in either system. It does suggest that she was put on doxy x2 months on 12/08, but pt states no further doxy use. She does think she was given another abx, but she does not remember the name. She thinks she took it for about 10 days. No further abx started on 01/27 per pt. Pt has hx of R sided breast cancer s/p mastectomy on 03/12/18. Pt tells me she is not on any tx for this. While looking for derm notes, I found another note from PCP stating that [facility] and was being tx with PO medications. She had intense joint pain with this and stopped this medication without f/u. I did return to pt room to discuss and they tell me that this did happen. She ended up with Qweekly iron transfusions while on this medication and with joint pain, so she wanted to stop it. Dr. Burns recommended against this, so she decided to just stop this medication and not return for further care. It appears that this was discussed at recent PCP visit last month with pt given referral to [facility] oncology, however she told PCP she did not want to f/u at this time with oncology, but that she would have a mammogram in February as scheduled. Pt does confirm that she has not scheduled a new pt visit with oncology but that she is planning her mammogram. Admission Exam Per Admitting Provider Constitutional: no acute distress Eyes: PERRL ENMT: external ear and nose normal, oropharynx normal Neck: trachea midline, no thyromegaly Respiratory: normal respiratory effort, lungs clear to auscultation Cardiovascular: Rate/Rhythm: regular rate and regular rhythm Heart Sounds: normal S1 and normal S2; no murmur Vessels: posterior tibial pulses present and dorsalis pedis pulses present; no JVD Extremities: no edema Gastrointestinal (Abdomen): Inspection/Auscultation: + abdomen distended (severe distension of upper abdomen with ?palpable loops of bowel) and normal bowel sounds Percussion/Palpation: abdomen nontender, no guarding and no hepatosplenomegaly Skin: + rash (lower abdominal wall - 2 large patches of scaly erythema b/l ) Neurologic: deep tendon reflexes 2+ bilaterally and moves all extremities; no focal motor deficits and not confused Psychiatric: A+Ox3, euthymic affect Principal Diagnosis Absence episode Hypertension Sinus bradycardia Vitamin D deficiency Meningioma Multiple enlarging cystic pancreatic lesions Stable renal cyst Stable 14mm adrenal nodule Large duodenal diverticulum (incidental finding) Large hiatal hernia (incidental finding) Discharge Exam Constitutional WD/WN, vitals as above Eyes normal visual ng by confrontation, + anicteric sclerae and PERRL ENMT external ear and nose normal, oropharynx normal Neck normal visual inspection and trachea midline Respiratory normal respiratory effort, lungs clear to auscultation Cardiovascular Rate/Rhythm: regular rate and regular rhythm Heart Sounds: normal S1 and normal S2; no murmur Extremities: no edema Gastrointestinal (Abdomen) Inspection/Auscultation: + abdomen distended and normal bowel sounds Percussion/Palpation: abdomen soft; abdomen nontender and no guarding Musculoskeletal Head/Neck/Chest: normocephalic and head atraumatic Skin + rash (lower abdominal wall - 2 large patches of scaly erythema b/l) Neurologic moves all extremities and awake; no focal motor deficits and not confused Speech / Cognition: normal speech Motor/Sensory: no tremor, no pronator drift and no sensory deficit Psychiatric A+Ox3, euthymic affect Discharge Data Allergies Allergy/AdvReac Type Severity Reaction Status Date / Time No Known Allergies Allergy Unknown NONE Verified 02/26/19 11:06 Consultations 02/14/19 16:13 ED Decision to Admit Stat Ordered Studies 02/15/19 12:15 MR brain wo/w con Routine 02/15/19 16:42 CT abd pelvis oral and IV con Routine Hospital Course (1) Syncope: Patient and currently denying true syncopal episode. Had other absence-like episodes previously lasting < minute. Unclear etiology and would recommend neurology consult although given brevity and sparsity of episodes and patient request for discharge agree this could be done as outpatient. This was evaluated with MRI brain and EEG. Since her heart rate was low normal I reduced labetalol dose although suspect unlikely to have contributed towards this episode. (2) Anemia: Non-acute but does not appear to have been adequately followed up. CEA added to labs prior to d/c. Discussed with patient for potential colonoscopy/EGD as outpatient. (3) Breast cancer: RIGHT. s/p mastectomy 03/2018 Did not complete course of PO chemo due to side effects and has not f/u since that time MRI brain w/o intracranial mets Encouraged to follow up with alternative provider since they did not get along with Dr Burns (4) Abdominal distension: x-rays today with small bowel dilatation etiology ??? in light of progressive symptoms, weight loss, etc will check CT abd/pelvis with IV/PO contrast r/o ascites, mass/tumor, etc she has no symptoms of obstructive process (5) Lyme disease: dx with early stage Lyme's sometime earlier this year. had at least 1, if not 2, courses of oral doxycycline. ?rash on abdomen from lyme disease - would defer to her outpatient junior buyer Lyme western blot outstanding on discharge however this episode does not appear related to lyme in anyway (6) Type 2 diabetes mellitus: Restart home meds on d/c (7) Hypertension: continue home meds Reduced labetalol due to bradycardia Monitor as outpatient (8) Hx of skin cancer, basal cell: numerous BCCs and some SCCs s/p removal by derm over the years (9) Hypothyroidism: recent TSH wnl continue Synthroid home dose (10) Hyperlipidemia: continue home meds (11) Lichen sclerosus: biopsy proven abdominal wall, bilateral lower abdominal wall cont local skin care as previously advised by dermatology (12) Weight loss: Underwent CT scan of your abdomen. This showed multiple incidental findings including cystic lesions on your pancreas. CA 19.9 pending on d/c. Recommended GI consult however patient requested d/c. Other findings include a stable (from prior PET) renal cyst which is the cause of your abdominal distension, stable adrenal adenoma, large diverticular, large hiatal hernia. Total Time Total Time Spent Total Time Spent (In Minutes): 50 Total Time Includes: Examination of the Patient, Discharge Planning and Medication Reconciliation Discharge Plan Discharge Items Patient Disposition: Home - Self-Care Reason For Visit: ABSENCE EPISODE Discharge Diagnosis: Absence episode Hypertension Sinus bradycardia Vitamin D deficiency Meningioma Multiple enlarging cystic pancreatic lesions Stable renal cyst Stable 14mm adrenal nodule Large duodenal diverticulum (incidental finding) Large hiatal hernia (incidental finding) Activity: Resume your previous activity Non-emergency contact: Primary Care Provider Call non-emergency contact if: you have any medication questions and your symptoms worsen Follow-up/Referrals: Beau Branham, [Physician] - (Referral for cystic pancreatic lesions, previous iron deficient anemia (no prior workup)) Jami Doan MD [Primary Care Provider] - Diet: Carb Consistent or DM2 Addtl Attending Provider Instructions: You were admitted after an absence episode lasting for a few minutes. This was evaluated with MRI brain and EEG. I recommended you stay for neurology consult as inpatient however you wished to be discharged at this time. Recommend discussing with your PCP for referral regarding this. MRI showed meningioma, most of these are benign however I would recommend following up with your oncologist regarding this. Since your heart rate was low normal we have reduced your labetalol dose as this may have contributed towards this episode. You also underwent CT scan of your abdomen. This showed multiple incidental findings including cystic lesions on your pancreas. I recommended inpatient gastroenterology consult regarding this as they can be cancerous especially given your recent reduced appetite. However, you wished to be discharged and therefore would recommend close outpatient follow up. Referral has been made above. Other findings include a stable (from prior PET) renal cyst which is the cause of your abdominal distension, stable adrenal adenoma, large diverticular, large, hiatal hernia. Recommend you also follow up regarding recent anemia in June since no workup was done for this at the time. Given your vitamin D level was low recommend daily regular supplementation for this. Pending Studies at Discharge: Yes Studies:: CA 19.9, CEA, lyme western blot Stand-Alone Forms: My [facility] Medications and DC Order Prescriptions: Continued levothyroxine 150 mcg tablet 150 mcg PO QAM Qty: 90 RF: 3 eplerenone 25 mg tablet 25 mg PO QAM Qty: 90 RF: 3 lancets [OneTouch Delica Lancets] 33 gauge misc .ROUTE .MEDSUPPLY Qty: 100 RF: 0 OneTouch Verio strip .ROUTE .MEDSUPPLY Qty: 10 RF: 0 aspirin [Aspirin Low Dose] 81 mg Tablet,Delayed Release (Dr/Ec) 81 mg PO QAM RF: 0 ascorbic acid (vitamin C) [Vitamin C] 1,000 mg tablet 1 g PO DAILY@1200 RF: 0 ibuprofen 200 mg Tablet 200 mg PO Q6H PRN (Reason: Pain) RF: 0 atorvastatin 40 mg tablet 20 mg PO QAM RF: 0 metformin 500 mg tablet 500 mg PO BIDM RF: 0 amlodipine 10 mg tablet 10 mg PO QAM RF: 0 lisinopril-hydrochlorothiazide 10-12.5 mg tablet 1 tab PO QAM RF: 0 Discontinued labetalol 100 mg tablet 200 mg PO BID Qty: 360 RF: 3 cholecalciferol (vitamin D3) 2,000 unit capsule 2,000 units PO DAILY@1200 RF: 0 No Action labetalol 100 mg tablet 100 mg PO DAILY RF: 0 cholecalciferol (vitamin D3) 2,000 unit capsule 4,000 units PO DAILY RF: 0 Discharge Orders: Discharge Order (Routine); Ordered 02/16/19 Ordered By: Donal Pereira Admission Data Admit Date/Time: 02/15/19 17:48 Attending Provider: Donal Pereira Admit Provider: Shasha Duke Primary Care Provider: Jami Doan Other Interventions: Discharge Summary Assessment (RN) Last Done: 02/16/19 16:49 DC Date/Time DO NOT enter until pt leaves facility: 02/16/19 18:21
[2019-02-19 10:18] LABS: 18KDIGG Band REACTIVE (NONREACTIVE); 23KDIGG Band REACTIVE (NONREACTIVE); 23KDIGM Band REACTIVE (NONREACTIVE); 28KDIGG Band NONREACTIVE (NONREACTIVE); 30KDIGG Band NONREACTIVE (NONREACTIVE); 39KDIGG Band REACTIVE (NONREACTIVE); 39KDIGM Band NONREACTIVE (NONREACTIVE); 41KDIGG Band REACTIVE (NONREACTIVE); 41KDIGM Band REACTIVE (NONREACTIVE); 45KDIGG Band REACTIVE (NONREACTIVE); 58KDIGG Band REACTIVE (NONREACTIVE); 66KDIGG Band REACTIVE (NONREACTIVE); 93KDIGG Band REACTIVE (NONREACTIVE); Lyme Antibodies, WB IgG POSITIVE (NEGATIVE); Lyme Antibodies, WB IgM POSITIVE (NEGATIVE)
== END 2019-02-16 18:21 | disposition home or self-care (01) | DRG 312 ==
LOC: ED 13:29 → 2N 13:29 → SUATTDRO 17:04 → 2N 18:30 → SUATTDRO 02-15 17:48